=== PATIENT | male | born 1985 | race Caucasian/White ===

== ENCOUNTER 2017-12-11 15:05 | Emergency (ER) | payer OTHER ==
[~2017-12-11] VITALS: Ht 172.7 cm; Wt 70.0 kg
--- NOTE | 2017-12-11 16:33 | PD ---
HPI Chief Complaint: Alcohol/Drug Intoxication Time Seen by Provider: 15:57 Travel History International Travel<30 days: No Contact w/Intl Traveler<30days: No Traveled to known affect area: No History of Present Illness HPI 32-year-old male presents to the emergency department under [place] act. According to law enforcement report he was "very incoherent and unable to answer questions. He smells of an alcoholic beverage. He also kept saying he would hurt someone." He was apparently picked up outside of [employer]. The patient is agitated and therefore HPI is limited. He keeps saying he is fine and he wants to go home. He says he does not have a primary care provider. He denies allergies. He denies medical complaints at this time. He denies chest pain, shortness of breath, abdominal pain, headache, nausea, vomiting, fevers. No known aggravating or relieving factors. Unknown onset. Unknown duration. Symptoms are moderate to severe in severity. No other modifying factors or associated signs and symptoms. [facility] Past Medical History Medical History: Unable to Obtain Diminished Hearing: No Past Surgical History Surgical History: Unable to Obtain Social History Alcohol Use: Yes Tobacco Use: Yes Substance Use: Yes Allergies-Medications (Allergen,Severity, Reaction): Coded Allergies: No Known Allergies (Verified Adverse Reaction, Unknown, 12/11/17) Reported Meds & Prescriptions Reported Meds & Active Scripts Active No Active Prescriptions or Reported Medications Review of Systems Except as stated in HPI: all other systems reviewed are Neg Physical Exam Narrative GENERAL: Well-nourished, well-developed male patient, in no acute distress SKIN: Warm and dry. HEAD: Atraumatic. Normocephalic. EYES: Pupils equal and round. ENT: Mucosa pink and moist. NECK: Supple. Trachea midline. CARDIOVASCULAR: Regular rate and rhythm. No murmur appreciated. RESPIRATORY: No accessory muscle use. Clear to auscultation. Breath sounds equal bilaterally. GASTROINTESTINAL: Abdomen soft, non-tender, nondistended. Hepatic and splenic margins not palpable. Bowel sounds are active 4 quadrants. MUSCULOSKELETAL: No obvious deformities. No clubbing. No cyanosis. No edema. NEUROLOGICAL: Awake and alert. Oriented 3. No obvious cranial nerve deficits. Motor grossly within normal limits. Normal speech. Moves all extremities. 5/5 strength to all extremities. PSYCHIATRIC: No delusional thought processes. No hallucinations. Data Data Orders Orders Restraints Violent (12/11/17 15:57) Diet Regular Basic (12/11/17 Dinner) MDM Medical Decision Making Medical Screen Exam Complete: Yes Emergency Medical Condition: Yes Medical Record Reviewed: Yes Differential Diagnosis Alcohol intoxication, alcohol abuse, medical clearance Narrative Course 32-year-old male presents under Cyndee quezada. Patient is restrained secondary to him being a threat to himself and others. He is agitated. Patient will be given time to sleep and sober up. He will be reevaluated at a later time and discharged home when he is clinically sober. 1632: Patient awake and alert. Says he drank a lot. Denies illicit drug use. Reports alcohol use daily. 1807: Patient is up and ambulating in the hallway. He is clinically sober and is asking to go home. Patient is calling a taxi to come and pick him up to take him home. Instructed patient to follow up with primary care provider. Patient verbalizes understanding and agreement with treatment plan. Patient is medically cleared and stable for discharge. Discussed reasons to return to the emergency department. Patient agrees with treatment plan. The patients vital signs are stable and the patient is stable for outpatient follow-up and treatment. Patient discharged home, stable and in no acute distress. Diagnosis Primary Impression: Alcohol intoxication Qualified Codes: F10.920 - Alcohol use, unspecified with intoxication, uncomplicated Referrals: JOANNE (Out patient) [facility] Primary Care Physician Bassem QUEZADA [facility] Patient Instructions: Abuse of Alcohol (ED), Alcohol Dependence (ED), Alcohol Intoxication (ED), General Instructions Additional Instructions: Stop drinking alcohol Follow-up with primary care provider Follow-up with Gigi Rawls Return to the emergency department immediately with worsening of symptoms Med/Other Pt SpecificInfo: No Change to Meds, No Meds Exist/No RX given Scripts No Active Prescriptions or Reported Meds Disposition: DISCHARGE HOME Condition: Stable Latricia Ramon Dec 11, 2017 16:33
== END 2017-12-11 18:19 | disposition home or self-care (01) ==
LOC: NEPD 15:05
DX: F10.920 Alcohol use, unspecified with intoxication, uncomplicated (principal); Z72.0 Tobacco use
CPT/HCPCS: 99282

== ENCOUNTER 2017-12-14 12:47 | Emergency (ER) | payer SELFPAY ==
[~2017-12-14] VITALS: Ht 170.2 cm; Wt 73.0 kg
[2017-12-14 12:50] VITALS: BP 146/75; PULSE 107; RESP 18; TEMP 97.7; O2SAT 99
[2017-12-14] MEDS ORDERED: chlordiazePOXIDE 25 MG CAP PO STA (13:08)
[2017-12-14] MEDS ORDERED: ONDANSETRON HCL 4 MG/2 ML VIAL IV PUSH ONE (13:15)
[2017-12-14] MEDS ORDERED: RANI150T PO (13:15)
[2017-12-14] MEDS ORDERED: LORazepam 2 MG/ML VIAL IV PUSH ONE (13:15)
[2017-12-14] MEDS ORDERED: CHLO25CA9 PO (13:15)
[2017-12-14] MEDS ORDERED: ALUMINUM/MAGNESIUM/SIMETH 30 ML CUP PO ONE (13:15)
[2017-12-14] MEDS ORDERED: SODIUM CHLOR 0.9% 1000 ML INJ 1,000 ML IV ONE (13:15)
[2017-12-14] MEDS ORDERED: FAMOTIDINE 20 MG TAB PO ONE (13:15)
--- NOTE | 2017-12-14 13:15 | PD ---
HPI Chief Complaint: Medical Clearance Time Seen by Provider: 13:02 Travel History International Travel<30 days: No Contact w/Intl Traveler<30days: No Traveled to known affect area: No History of Present Illness HPI This 32-year-old male presents emergency department complaining of chest pain alcohol withdrawal. He states he was sober 5 months, got an argument lost his job and was drinking for the past for 5 days. Last drank yesterday. Today started having worsening withdrawal symptoms including irritability restlessness tremor. He reports that he has had withdrawal symptoms in the past but never this severe. Started getting abdominal pain and chest pain today as well. Pain is on the left side of the chest, and moderately severe. No history of any other medical problems. No other complaints. History Past Medical History Narrative Medical Alcoholism Tetanus Vaccination: < 5 Years Influenza Vaccination: Yes Social History Alcohol Use: Yes (12/13/17) Tobacco Use: Yes (1PPD) Allergies-Medications (Allergen,Severity, Reaction): Coded Allergies: No Known Allergies (Verified Adverse Reaction, Unknown, 12/14/17) Reported Meds & Prescriptions Reported Meds & Active Scripts Active Review of Systems Except as stated in HPI: all other systems reviewed are Neg Physical Exam Narrative GENERAL: 32-year-old man, restless uncomfortable. Tremulous. SKIN: Focused skin assessment warm/dry. HEAD: Atraumatic. Normocephalic. EYES: Pupils equal and round. No scleral icterus. No injection or drainage. ENT: No nasal bleeding or discharge. Mucous membranes pink and moist. NECK: Trachea midline. No JVD. CARDIOVASCULAR: Regular rate and rhythm. No murmur appreciated. RESPIRATORY: No accessory muscle use. Clear to auscultation. Breath sounds equal bilaterally. GASTROINTESTINAL: Abdomen soft, non-tender, nondistended. Hepatic and splenic margins not palpable. MUSCULOSKELETAL: No obvious deformities. No clubbing. No cyanosis. No edema. NEUROLOGICAL: Awake and alert. No obvious cranial nerve deficits. Motor grossly within normal limits. Normal speech. PSYCHIATRIC: Anxious. Data Data Last Documented VS Vital Signs Date Time Temp Pulse Resp B/P (MAP) Pulse Ox O2 Delivery O2 Flow Rate FiO2 12/14/17 14:11 99.1 91 18 142/82 (102) 96 Room Air Orders Orders Lorazepam Inj (Ativan Inj) (12/14/17 13:15) Sodium Chlor 0.9% 1000 Ml Inj (Ns 1000 M (12/14/17 13:15) Famotidine (Pepcid) (12/14/17 13:15) Al-Mag Hy-Si 40-40-4 Mg/Ml Liq (Mag-Al P (12/14/17 13:15) Ondansetron Inj (Zofran Inj) (12/14/17 13:15) Iv Access Insert/Monitor (12/14/17 13:08) Complete Blood Count With Diff (12/14/17 13:08) Comprehensive Metabolic Panel (12/14/17 13:08) Lipase (12/14/17 13:08) Troponin I (12/14/17 13:08) Electrocardiogram (12/14/17 ) Chest, Pa & Lat (12/14/17 ) Chlordiazepoxide (Librium) (12/14/17 13:08) Labs Laboratory Tests Test 12/14/17 13:40 White Blood Count 5.2 TH/MM3 Red Blood Count 5.21 MIL/MM3 Hemoglobin 15.8 GM/DL Hematocrit 45.1 % Mean Corpuscular Volume 86.5 FL Mean Corpuscular Hemoglobin 30.4 PG Mean Corpuscular Hemoglobin Concent 35.1 % Red Cell Distribution Width 13.7 % Platelet Count 256 TH/MM3 Mean Platelet Volume 6.9 FL Neutrophils (%) (Auto) 67.8 % Lymphocytes (%) (Auto) 22.7 % Monocytes (%) (Auto) 7.4 % Eosinophils (%) (Auto) 1.1 % Basophils (%) (Auto) 1.0 % Neutrophils # (Auto) 3.5 TH/MM3 Lymphocytes # (Auto) 1.2 TH/MM3 Monocytes # (Auto) 0.4 TH/MM3 Eosinophils # (Auto) 0.1 TH/MM3 Basophils # (Auto) 0.1 TH/MM3 CBC Comment DIFF FINAL Differential Comment Blood Urea Nitrogen 14 MG/DL Creatinine 0.85 MG/DL Random Glucose 92 MG/DL Total Protein 8.0 GM/DL Albumin 4.1 GM/DL Calcium Level 9.2 MG/DL Alkaline Phosphatase 51 U/L Aspartate Amino Transf (AST/SGOT) 47 U/L Alanine Aminotransferase (ALT/SGPT) 43 U/L Total Bilirubin 0.5 MG/DL Sodium Level 143 MEQ/L Potassium Level 3.8 MEQ/L Chloride Level 103 MEQ/L Carbon Dioxide Level 28.7 MEQ/L Anion Gap 11 MEQ/L Estimat Glomerular Filtration Rate 104 ML/MIN Troponin I LESS THAN 0.02 NG/ML Lipase 104 U/L [facility] Medical Decision Making Medical Screen Exam Complete: Yes Emergency Medical Condition: Yes Interpretation(s) My review of EKG: Normal sinus rhythm at a rate of 83, normal axis, normal intervals, no acute ischemia. LABS CBC unremarkable CMP unremarkable Lipase normal Troponin negative Chest x-ray: Negative Differential Diagnosis Alcohol withdrawal, gastritis, pancreatitis, ACS, pleurisy, PE, other Narrative Course Medical decision-making 32-year-old man presents emerged, chest pain and alcohol withdrawal symptoms. Looks tremulous not unwell. Although tachycardic. We will give him a dose of IV Ativan fluids and some symptomatic treatment here. Will check labs x-ray EKG. use Librium in the past for withdrawal symptoms. Discussed dosing of the Librium with the patient. Diagnosis Primary Impression: Alcohol withdrawal Patient Instructions: General Instructions Additional Instructions: Take ranitidine as prescribed. Take Librium as prescribed as needed for withdrawal symptoms. Return the emergency department for any seizures, or any other new or worsening symptoms. Med/Other Pt SpecificInfo: Prescription(s) given Disposition: 01 DISCHARGE HOME Condition: Stable Óscar Albright MD Dec 14, 2017 13:15
--- NOTE | 2017-12-14 13:55 | RADRPT ---
EXAM DATE/TIME: 12/14/2017 13:26 [place] COMPARISON: No previous studies available for comparison. INDICATIONS : Chest pain. MEDICAL HISTORY : Smoker. SURGICAL HISTORY : None. ENCOUNTER: Initial ACUITY: 1 day PAIN SCORE: 9/10 LOCATION: Right upper chest FINDINGS: PA and lateral views of the chest demonstrate the lungs to be symmetrically aerated without evidence of mass, infiltrate or effusion. The cardiomediastinal contours are unremarkable. Osseous structure s are intact. CONCLUSION: 1. No acute cardiopulmonary disease. Adria Valenzuela MD on December 14, 2017 at 13:50 Board Certified Radiologist. This report was verified electronically.
[2017-12-14 14:06] LABS: AUTOMATED NEUTROPHIL # 3.5 TH/MM3 (1.8-7.7); BASOPHIL # 0.1 TH/MM3 (0-0.2); EOSINOPHIL # 0.1 TH/MM3 (0-0.4); EOSINOPHIL % 1.1 % (0.0-4.0); HEMATOCRIT 45.1 % (39.0-51.0); HEMOGLOBIN 15.8 GM/DL (13.0-17.0); LYMPH % 22.7 % (9.0-44.0); LYMPHOCYTE # 1.2 TH/MM3 (1.0-4.8); MEAN CELL VOLUME 86.5 FL (80.0-100.0); MEAN CORPUSCULAR HEMOGLOBIN 30.4 PG (27.0-34.0); MEAN CORPUSCULAR HGB CONC 35.1 % (32.0-36.0); MEAN PLATELET VOLUME 6.9 FL (7.0-11.0); MONO % 7.4 % (0.0-8.0); MONOCYTE # 0.4 TH/MM3 (0-0.9); NEUT % 67.8 % (16.0-70.0); PLATELET COUNT 256 TH/MM3 (150-450); RED BLOOD COUNT 5.21 MIL/MM3 (4.50-5.90); RED CELL DISTRIBUTION WIDTH 13.7 % (11.6-17.2); WHITE BLOOD COUNT 5.2 TH/MM3 (4.0-11.0)
[2017-12-14 14:11] VITALS: BP 142/82; PULSE 91; RESP 18; TEMP 99.1; O2SAT 96
[2017-12-14 14:21] LABS: ALBUMIN 4.1 GM/DL (3.4-5.0); ALT (GPT) 43 U/L (12-78); AST (GOT) 47 U/L (15-37); BICARBONATE 28.7 MEQ/L (21.0-32.0); BLOOD UREA NITROGEN 14 MG/DL (7-18); CALCIUM 9.2 MG/DL (8.5-10.1); CHLORIDE 103 MEQ/L (98-107); CREATININE 0.85 MG/DL (0.60-1.30); GLOMERULAR FILTRATION RATE 104 ML/MIN (>89); GLUCOSE,RANDOM 92 MG/DL (74-106); SODIUM (NA) 143 MEQ/L (136-145)
[2017-12-14 14:26] LABS: ALKALINE PHOSPHATASE 51 U/L (45-117); TOTAL BILIRUBIN ADULT 0.5 MG/DL (0.2-1.0); TROPONIN I LESS THAN 0.02 NG/ML (0.02-0.05)
[2017-12-14 14:59] VITALS: BP 123/64
--- NOTE | 2017-12-14 23:38 | EKG ---
Date Performed: 12/14/2017 Time Performed: 14:02:56 PTAGE: 32 years EKG: Sinus rhythm NORMAL ECG NO PREVIOUS TRACING DOCTOR: Brian Andres Interpretating Date/Time 12/14/2017 23:36:16
== END 2017-12-14 14:59 | disposition home or self-care (01) ==
LOC: NEPD 12:47
DX: F10.239 Alcohol dependence with withdrawal, unspecified (principal); F17.200 Nicotine dependence, unspecified, uncomplicated
CPT/HCPCS: 71046; 80053; 83690; 84484; 85025; 93005; 96361; 96374; 96375; 99285; J2060; J2405; J7030